=== PATIENT | female | born 1970 | race Caucasian/White ===

== ENCOUNTER → 2019-10-23 | Day surgery (SDC) | payer OTHER ==
[~2019-10-23] MED LIST: IV RINGERS SOLUTION,LACTATED 1,000 ML IV SCH; ONDANSETRON PF 4 MG/2 ML VIAL. IV PRN
[2019-10-23 12:25] VITALS: BP 115/82
--- NOTE | 2019-10-25 15:07 | PATHOLOGY ---
[facility] Accession Number: [id number] . 01 Material submitted: . stomach - ANTRUM . 01 Clinical history: . GERD, dysphagia . 02 Diagnosis: Gastric biopsies, antrum: - Congestion and focal slight chronic inflammation. LBQ 10/25/2019 1324 Local . 02 Comment: A properly controlled immunoperoxidase stain for Helicobacter is negative for Helicobacter organisms. There is no evidence of malignancy. (JPM/db; 10/25/2019) . 02 Electronically signed: . Manas Gutierrez MD, Pathologist NPI- [id number] . 01 Gross description: . Received in formalin labeled "Villafana, Ivonne, antrum," are 2 segments of melendez soft tissue measuring 0.8 x 0.2 x 0.2 cm in aggregate dimensions and ranging from 0.3 to 0.5 cm in maximum dimension. The specimen is submitted entirely in cassette A1. (TSD; 10/24/2019) TOB/TOB 10/24/2019 2046 Local . 02 Pathologist provided ICD-10: K29.50 . 02 CPT . 193396, [id number] Specimen Comment: A courtesy copy of this report has been sent to [phone] Specimen Comment: [phone] Specimen Comment: Report sent to / DR SPENCER Specimen Comment: A duplicate report has been generated due to demographic updates. Performed at: 01 [facility] [address] [id number] MD Marc Negrete MD Phone: [phone] Performed at: 02 [facility] [address] [place], [place] [id number] MD Manas Gutierrez MD Phone: [phone]
== END | disposition home or self-care (01) ==
LOC: SURG 09:55
PROVIDERS: ATTEND Internal Medicine Gastroenterology
DX: K21.9 Gastro-esophageal reflux disease without esophagitis (principal); K29.50 Unspecified chronic gastritis without bleeding; R13.10 Dysphagia, unspecified; E89.0 Postprocedural hypothyroidism; E66.9 Obesity, unspecified; Z79.899 Other long term (current) drug therapy; Z98.890 Other specified postprocedural states; Z90.710 Acquired absence of both cervix and uterus
CPT/HCPCS: 43239; 43450; J7120